=== PATIENT | female | born 1975 | race Caucasian/White ===

== ENCOUNTER 2018-07-21 17:09 | Emergency (ER) | payer OTHER ==
[~2018-07-21] VITALS: Ht 170.1 cm; Wt 81.6 kg
[2018-07-21] MEDS ORDERED: THEOPHYLLINE300 M2 PO (17:17)
[2018-07-21] MEDS ORDERED: PROPRANOLOL HCL20 MG PO (17:17)
[2018-07-21] MEDS ORDERED: SINGULAIR10 M1 PO (17:18)
[2018-07-21] MEDS ORDERED: PROAIR HFA8.5 GM INH (17:18)
[2018-07-21] MEDS ORDERED: NAPROSYN500 MG PO (17:23)
== END 2018-07-21 17:37 | disposition home or self-care (01) ==
LOC: ED 17:09
DX: M25.561 Pain in right knee (principal); R03.0 Elevated blood-pressure reading, without diagnosis of hypertension; Z79.899 Other long term (current) drug therapy; Z88.0 Allergy status to penicillin; Z88.2 Allergy status to sulfonamides; Z88.1 Allergy status to other antibiotic agents; Z88.3 Allergy status to other anti-infective agents; Z88.6 Allergy status to analgesic agent; X50.1XXA Overexertion from prolonged static or awkward postures, initial encounter; Y93.89 Activity, other specified; Y92.89 Other specified places as the place of occurrence of the external cause; Y99.9 Unspecified external cause status

== ENCOUNTER 2019-02-01 13:24 | Emergency (ER) | payer OTHER ==
[~2019-02-01] VITALS: Wt 90.7 kg
[~2019-02-01 13:24] MED LIST: NAPROSYN500 MG PO; PROAIR HFA8.5 GM INH; PROPRANOLOL HCL20 MG PO; SINGULAIR10 M1 PO; THEOPHYLLINE300 M2 PO
[2019-02-01 14:00] LABS: BASO % 0.3 % (0.0-1.0); EOS # 0.1 10*3/uL (0.0-0.4); EOS % 0.8 % (1.0-4.0); HEMATOCRIT 41.6 % (37.0-47.0); LYMPH # 1.4 10*3/uL (1.3-4.4); MEAN CELL VOLUME 89.1 fl (81.0-99.0); MEAN CORPUSCULAR HGB CONC 33.7 g/dl (33.0-37.0); MEAN PLATELET VOLUME 9.8 fl (9.6-12.3); MONO # 0.6 10*3/uL (0.1-1.0); MONO % 9.4 % (3.0-9.0); NEUT # 3.9 10*3/uL (2.3-7.9); PLATELET COUNT AUTOMATED 342 10*3/uL (130-400); RED BLOOD COUNT 4.67 10*6/uL (4.10-5.10); RED CELL DISTRI WIDTH 12.3 % (0-14.5)
[2019-02-01 14:08] LABS: BILIRUBIN NEGATIVE (NEGATIVE); BLOOD 1+ (NEGATIVE); CLARITY CLEAR (CLEAR); COLOR YELLOW (YELLOW); GLUCOSE NEGATIVE (NEGATIVE); KETONE NEGATIVE (NEGATIVE); LEUKO ESTERASE TRACE (NEGATIVE); NITRITE NEGATIVE (NEGATIVE); SPECIFIC GRAVITY 1.025 (1.005-1.030); UROBILINOGEN 0.2 E.U./dl (0.2-1.0)
[2019-02-01 14:15] LABS: BACTERIA 2+; MUCOUS 1+
[2019-02-01 14:23] LABS: ALKALINE PHOSPHATASE 56 U/L (45-117); BUN 15 mg/dl (7-24); CHLORIDE 104 mmol/L (98-107); CREATININE 0.79 mg/dL (0.55-1.02); LIPASE 104 U/L (73-393); SGOT/AST 19 IU/L (3-35); SGPT/ALT 21 U/L (12-78); SODIUM 136 mmol/L (136-145); TOTAL PROTEIN 7.7 gm/dL (6.4-8.2)
[2019-02-01] MEDS ORDERED: K-TAB20 MEQ PO (14:42)
[2019-02-01] MEDS ORDERED: ZOFRAN4 MG PO (14:42)
== END 2019-02-01 15:36 | disposition home or self-care (01) ==
LOC: ED 13:24
PROVIDERS: Emergency Medicine
DX: K52.9 Noninfective gastroenteritis and colitis, unspecified (principal); E87.6 Hypokalemia; G43.909 Migraine, unspecified, not intractable, without status migrainosus; Z88.0 Allergy status to penicillin; Z88.2 Allergy status to sulfonamides; Z88.1 Allergy status to other antibiotic agents; Z88.8 Allergy status to other drugs, medicaments and biological substances; Z79.899 Other long term (current) drug therapy

== ENCOUNTER 2019-04-12 18:39 | Emergency (ER) | payer OTHER ==
[~2019-04-12] VITALS: Ht 172.7 cm; Wt 95.3 kg
[~2019-04-12 18:39] MED LIST changes: +K-TAB20 MEQ PO; +ZOFRAN4 MG PO
[2019-04-12] MEDS ORDERED: IBUPROFEN600 MG PO (20:04)
== END 2019-04-12 21:02 | disposition home or self-care (01) ==
LOC: ED 18:39
DX: K02.9 Dental caries, unspecified (principal); Z79.899 Other long term (current) drug therapy; Z88.0 Allergy status to penicillin; Z88.2 Allergy status to sulfonamides; Z88.1 Allergy status to other antibiotic agents; Z88.8 Allergy status to other drugs, medicaments and biological substances

== ENCOUNTER 2019-11-19 08:33 | Emergency (ER) | payer OTHER ==
[~2019-11-19] VITALS: Ht 170.1 cm; Wt 90.7 kg
[~2019-11-19 08:33] MED LIST changes: +IBUPROFEN600 MG PO
[2019-11-19 09:12] LABS: BASO % 0.3 % (0.0-1.0); EOS # 0.1 10*3/uL (0.0-0.4); EOS % 1.1 % (1.0-4.0); HEMATOCRIT 39.4 % (37.0-47.0); HEMOGLOBIN 12.8 g/dl (12.0-16.0); LYMPH # 0.9 10*3/uL (1.3-4.4); LYMPH % 8.6 % (27.0-41.0); MEAN CORPUSCULAR HGB 29.2 pg (27.0-31.0); MEAN CORPUSCULAR HGB CONC 32.5 g/dl (33.0-37.0); MEAN PLATELET VOLUME 10.6 fl (9.6-12.3); MONO # 0.3 10*3/uL (0.1-1.0); MONO % 3.3 % (3.0-9.0); NEUT # 8.8 10*3/uL (2.3-7.9); NEUT % 86.3 % (47.0-73.0); PLATELET COUNT AUTOMATED 282 10*3/uL (130-400); RED BLOOD COUNT 4.38 10*6/uL (4.10-5.10); RED CELL DISTRI WIDTH 12.5 % (0-14.5); WHITE BLOOD COUNT 10.2 10*3/uL (4.8-10.8)
[2019-11-19 09:22] LABS: ACT PARTIAL THROMBO TIME 25.7 SECONDS (20.0-32.1); INTERNATIONAL NORM RATIO 0.9 (2.0-3.5)
[2019-11-19 09:27] LABS: ALBUMIN 3.7 gm/dl (3.1-4.5); ALKALINE PHOSPHATASE 57 U/L (45-117); BUN 7 mg/dl (7-24); CHLORIDE 105 mmol/L (98-107); CREATININE 0.78 mg/dL (0.55-1.02); SGOT/AST 14 IU/L (3-35); SGPT/ALT 15 U/L (12-78); SODIUM 139 mmol/L (136-145); TOTAL PROTEIN 7.2 gm/dL (6.4-8.2)
[2019-11-19 10:59] LABS: BILIRUBIN NEGATIVE (NEGATIVE); BLOOD 3+ (NEGATIVE); CLARITY TURBID (CLEAR); COLOR RED (YELLOW); GLUCOSE NEGATIVE (NEGATIVE); KETONE NEGATIVE (NEGATIVE); NITRITE NEGATIVE (NEGATIVE); SPECIFIC GRAVITY 1.025 (1.005-1.030); UROBILINOGEN 0.2 E.U./dl (0.2-1.0)
[2019-11-19 11:01] LABS: LEUKO ESTERASE NEGATIVE (NEGATIVE)
[2019-11-19 11:04] LABS: RBC TNTC rbc/hpf (0-2)
[2019-11-19 11:05] LABS: BACTERIA 1+; EPITHELIAL CELLS 30-40; WBC 31-40 wbc/hpf (0-5)
[2019-11-19] MEDS ORDERED: PROVERA10 MG PO (12:24)
[2019-11-19] MEDS ORDERED: ZOFRAN4 MG PO (12:24)
== END 2019-11-19 12:30 | disposition home or self-care (01) ==
LOC: ED 08:33
PROVIDERS: Family Medicine
DX: N93.8 Other specified abnormal uterine and vaginal bleeding (principal); Z88.0 Allergy status to penicillin; Z88.2 Allergy status to sulfonamides; Z88.1 Allergy status to other antibiotic agents; Z88.8 Allergy status to other drugs, medicaments and biological substances; Z79.899 Other long term (current) drug therapy

== ENCOUNTER 2023-03-19 20:13 | Emergency (ER) | payer OTHER ==
[~2023-03-19] VITALS: Ht 170.1 cm; Wt 97.5 kg
[~2023-03-19 20:13] MED LIST changes: +IBU800 MG PO; +LEVOFLOXACIN500 MG PO; +METRONIDAZOLE500 M1 PO; -PROPRANOLOL HCL20 MG PO; +PROPRANOLOL HCL40 MG PO; +PROVERA10 MG PO; +PROZAC40 M1 PO
[2023-03-19] MEDS ORDERED: HYDROCODONE-AC1 EAC1 PO (22:13)
== END 2023-03-19 23:07 | disposition home or self-care (01) ==
LOC: ED 20:13
DX: S82.62XA Displaced fracture of lateral malleolus of left fibula, initial encounter for closed fracture (principal); J45.909 Unspecified asthma, uncomplicated; G43.909 Migraine, unspecified, not intractable, without status migrainosus; F32.A Depression, unspecified; Z88.0 Allergy status to penicillin; Z88.2 Allergy status to sulfonamides; Z88.1 Allergy status to other antibiotic agents; Z91.018 Allergy to other foods; Z88.8 Allergy status to other drugs, medicaments and biological substances; Z98.890 Other specified postprocedural states; W55.12XA Struck by horse, initial encounter; Y93.52 Activity, horseback riding; Y92.39 Other specified sports and athletic area as the place of occurrence of the external cause; Y99.8 Other external cause status